=== PATIENT | female | born 1945 | race Caucasian/White ===

== ENCOUNTER 2021-01-14 07:24 | Outpatient (CLI) | payer MEDICARE ==
[~2021-01-14] VITALS: Ht 172.7 cm; Wt 60.3 kg
[2021-01-14] VITALS (9 sets, daily range): BP systolic 117–159; BP diastolic 59–79; PULSE 61–66; TEMP 98
[2021-01-14] MEDS ORDERED: ASPI325T6 PO (08:11)
[2021-01-14] MEDS ORDERED: CALCITRIOL PO (08:12)
[2021-01-14] MEDS ORDERED: CALCIUM 600-D 61 TAB PO (08:13)
[2021-01-14] MEDS ORDERED: ZYRTEC 10MG10 MG PO (08:13)
[2021-01-14] MEDS ORDERED: FLONASEALLERGY NS (08:13)
[2021-01-14] MEDS ORDERED: ZESTRIL 5MG5 MG PO (08:14)
[2021-01-14] MEDS ORDERED: MAGNESIUM250 M1 PO (08:14)
[2021-01-14] MEDS ORDERED: MULTIVITAMIN FO1 CAP PO (08:15)
[2021-01-14] MEDS ORDERED: SYNTHROID0.075 MG/T PO (08:16)
== END 2021-01-14 12:00 | disposition home or self-care (01) ==
LOC: COL.CAR 07:24
DX: S32.010A Wedge compression fracture of first lumbar vertebra, initial encounter for closed fracture (principal); M54.9 Dorsalgia, unspecified; I10 Essential (primary) hypertension; E07.9 Disorder of thyroid, unspecified; M81.0 Age-related osteoporosis without current pathological fracture; Z79.899 Other long term (current) drug therapy; Z79.82 Long term (current) use of aspirin; Z79.890 Hormone replacement therapy; Z80.9 Family history of malignant neoplasm, unspecified
CPT/HCPCS: C1713; J1200; J2250; J3010